=== PATIENT | female | born 1970 | race Caucasian/White ===

== ENCOUNTER 2016-12-02 18:03 | Emergency (ER) | payer OTHER | END 2016-12-02 18:39 | disposition left against medical advice (07) | DX: Z53.21 Procedure and treatment not carried out due to patient leaving prior to being seen by health care provider (principal) ==

== ENCOUNTER 2016-12-02 18:57 | Emergency (ER) | payer OTHER ==
[2016-12-02 19:15] VITALS: BP 127/99; PULSE 83; RESP 18; TEMP 98.4; O2SAT 98
[2016-12-02] MEDS ORDERED: IBUPROFEN 200 MG TAB PO ONE (19:19)
--- NOTE | 2016-12-02 19:44 | UCPHY ---
H & P Time Seen by Provider: 12/02/16 19:08 Patient Type: New HPI/ROS: This patient slipped on ice and landed on her left elbow. She complains of pain at the olecranon of the elbow and also some shoulder pain at the apex of the shoulder. She states that she felt that there is a ripping sensation the musculature of her shoulder or some structure in her shoulder when she fell. The incident occurred shortly prior to arrival she reports the pain is moderate and elbow in achy in nature and mild achiness in the left shoulder. She has not taken any medications prior to arrival. ROS: She did not strike her head. No neck or back injuries. No other musculoskeletal complaints. Neuro: No numbness or tingling. 5 point ROS is otherwise negative. 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 General: No acute distress HEENT: Atraumatic. Eyes: Pupils equal and react to light. Extraocular motions are intact. Neck: Nontender Back: Nontender Lungs: No respiratory distress. Cardiac: Brisk capillary refill is intact throughout. Pulses are 2+ and symmetric in the affected extremity. Extremities: Normal except for left upper extremity Left upper extremity: Notable for mild tenderness at the apex of the shoulder. Despite this retains full range of motion. However with AB duction she has mild increase again at the apex supraspinous tendon muscle region. No difficulty with external rotation. Elbow: She has moderate to exquisite tenderness at the left olecranon. She is able to pronate and supinate without significant increase in pain. She has mild increased pain with elbow extension but she is able flex and extend. Skin: No rash or pallor. Neuro: Alert with no sensorimotor deficits. Initial differential diagnoses: Left rotator cuff injury, rule out left elbow fracture versus contusion versus sprain Constitutional: Initial Vital Signs Temperature (C) 36.9 C 12/02/16 19:12 Heart Rate 83 12/02/16 19:12 Respiratory Rate 18 12/02/16 19:12 Blood Pressure 127/99 H 12/02/16 19:12 O2 Sat (%) 98 12/02/16 19:12 O2 Delivery Mode Room Air Allergies/Adverse Reactions: prochlorperazine edisylate [From Compazine] Allergy (Unknown, Verified 12/02/16 19:12) SEE COMMENT prochlorperazine maleate [From Compazine] Allergy (Unknown, Verified 12/02/16 19 :12) SEE COMMENT ENVIRONMENTAL Allergy (Uncoded 12/02/16 19:12) ITCHY EYES/NASAL CONGESTION Home Medications: Medication Instructions Recorded Acetaminophen [Tylenol ES 500 mg 1,000 mg PO DAILY@18 PRN 07/20/15 (*)] Calcium Carbonate [Oyster Shell 500 mg PO DAILY 07/20/15 Calcium 500 mg (*)] Calcium Carbonate [Oyster Shell 500 mg PO DAILY #30 tab 07/21/15 Calcium 500 mg (*)] Cholecalciferol Vit D3 [Vitamin D3 2,000 units PO DAILY #30 tab 07/21/15 (*)] Ketorolac Tromethamine [Toradol] 10 mg PO Q6H PRN #16 tab 07/21/15 Methocarbamol [Robaxin 750 mg (*)] 750 - 1,500 mg PO QID PRN #30 tab 12/02/16 MDM/Departure - MDM Diagnostics: Elbow x-ray: Negative by my interpretation. I also reviewed this x-ray with the patient. Medications Given: Discontinued Medications Ibuprofen (Motrin) 600 mg PO EDNOW ONE Stop: 12/02/16 19:20 Last Admin: 12/02/16 19:30 Dose: 600 mg ED Course/Re-evaluation: Patient is placed in a sling for comfort. I counseled her regarding contusion as well as shoulder rotator cuff strain. She will follow up with orthopedics for any ongoing symptoms. Also demonstrated wall crawls to keep her shoulder limber. After workup, I do not find evidence of fracture other concerning findings She is treated with ibuprofen while here. - Depart Disposition: Home, Routine, Self-Care Clinical Impression: Rotator cuff strain Qualifiers: Encounter type: initial encounter Laterality: left Qualifier Code: (S46.012A) Strain of muscle(s) and tendon(s) of the rotator cuff of left shoulder, initial encounter Elbow contusion Qualifiers: Encounter type: initial encounter Laterality: left Qualifier Code: (S50.02XA) Contusion of left elbow, initial encounter Condition: Good Instructions: Rotator Cuff Injury (ED) Additional Instructions: Diagnoses: 1. Rotator cuff strain 2. Neck strain 3. Elbow contusion Plan: Ice 20 minutes at a time 3 times a day for the next few days Sling to the left arm for comfort while up and about Gentle wall crawls stretches to maintain shoulder range of motion [id number] mg per 6 hours as needed Methocarbamol muscle relaxant in addition to the ibuprofen as needed. No driving on methocarbamol. Your symptoms should improve significantly over the next 7-10 days. If you're not improving, call Dr. thayer or an orthopedic surgeon of your choice for follow-up and further evaluation Stand Alone Forms: Work Excuse Prescriptions: Methocarbamol [Robaxin 750 mg (*)] 750 - 1,500 mg PO QID PRN #30 tab PRN Reason: Muscle Spasms Referrals: Alma Rosa Mullins MD [Primary Care Provider] - As per Instructions Conner Thayer MD [Medical Doctor] - As per Instructions - PQRS PQRS Measurement: NA
--- NOTE | 2016-12-02 19:45 | DX ---
Left Elbow 3 Views. Reason for examination: Pain following trauma. Findings: A definite fracture is not identified. The bone alignment is normal. There is a mildly prom inent anterior fat pad. Impression: No definite acute fracture although there was a mildly prominent anterior fat pad. Conser vative management and follow-up radiography could be considered with repeat assessment in 7-10 days i f symptoms persist.
== END 2016-12-02 19:52 | disposition home or self-care (01) ==
LOC: CED 18:57
DX: S46.012A Strain of muscle(s) and tendon(s) of the rotator cuff of left shoulder, initial encounter (principal); S50.02XA Contusion of left elbow, initial encounter; S16.1XXA Strain of muscle, fascia and tendon at neck level, initial encounter; W00.0XXA Fall on same level due to ice and snow, initial encounter
CPT/HCPCS: 73080-PO; G0463-PO

== ENCOUNTER 2017-11-11 08:57 | Emergency (ER) | payer OTHER ==
[2017-11-11] MEDS ORDERED: NS 1,000 ML IV ONE (10:10)
--- NOTE | 2017-11-11 10:13 | EDPHY ---
H & P Time Seen by Provider: 11/11/17 09:20 HPI/ROS: Chief complaint. Abdominal pain HPI. 39-year-old female presents emergency department with mid abdominal wall burning type pain that is constant for the last 14 hr. Possibly slight radiation to her back. No nausea vomiting or diarrhea. No urinary symptoms. No fever. She has approximately 2 years status post appendectomy. Her pain is not worse with movement or position or deep palpation. She has no chest complaints of chest discomfort or shortness of breath. ROS Constitutional. no fever/chills, no weakness Eyes. no problems with vision ENT. no sore throat, no nasal drainage Cardiovascular. no chest pain Respiratory. no shortness of breath, no cough Abdominal. Mid abdominal pain without nausea vomiting or diarrhea . no problems urinating MS. no calf pain/swelling, no neck/back pain, no joint pain Skin. no rash Lymph. no swollen glands Neuro. no headache, no dizziness, no difficulty walking or with speech Past Medical/Surgical History: Appendectomy, hyperparathyroidism Social History: , nonsmoker, no alcohol Smoking Status: Never smoked Physical Exam: General Appearance: Alert well-developed female mild distress vital signs are stable Eyes: Pupils equal and round no pallor or injection. ENT, Mouth: Mucous membranes are moist. Respiratory: There are no retractions, lungs are clear to auscultation. Cardiovascular: Regular rate and rhythm. Gastrointestinal: Abdomen is soft and nontender, no masses, bowel sounds normal. Patient shows me tenderness area is just below the umbilicus but it is not worse with palpation Neurological: Awake and alert, sensory and motor exams grossly normal. Skin: Warm and dry, no rashes. Musculoskeletal: Neck is supple nontender. Extremities symmetrical, full range of motion. Psychiatric: Patient is oriented X 3, there is no agitation. Constitutional: Initial Vital Signs Temperature (C) 36.4 C 11/11/17 09:01 Heart Rate 67 11/11/17 09:01 Respiratory Rate 18 11/11/17 09:01 Blood Pressure 126/76 H 11/11/17 09:01 O2 Sat (%) 100 11/11/17 09:01 O2 Delivery Mode Room Air Allergies/Adverse Reactions: prochlorperazine edisylate [From Compazine] Allergy (Unknown, Verified 11/11/17 08:59) SEE COMMENT prochlorperazine maleate [From Compazine] Allergy (Unknown, Verified 11/11/17 08 :59) SEE COMMENT ENVIRONMENTAL Allergy (Uncoded 12/02/16 19:12) ITCHY EYES/NASAL CONGESTION Home Medications: Medication Instructions Recorded Calcium Carbonate [Oyster Shell 500 mg PO DAILY #30 tab 07/21/15 Calcium 500 mg (*)] Medical Decision Making - Diagnostics Imaging Results: Imaging Impressions Abdomen CT 11/11/17 11:38 Impression: 1. Constipation. No evidence for small bowel obstruction. 2. Nonobstructive left nephrolithiasis. Results called and discussed with Dr. Kolton Bah on 11/11/2017, 12:43. CT abdomen pelvis with IV contrast shows constipation in the ascending transverse colon. Nonobstructing stone in the left kidney. Some fluid in non dilated loops of bowel Procedures: IV normal saline ED Course/Re-evaluation: Re-evaluation 11:30 a.m.. Patient is stable. She, her , and I discussed laboratory evaluation. She continues to have mid abdominal discomfort. 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 We discussed risks and benefits of this she is aware of course of radiation exposure On re-evaluation at 1:10 p.m. patient is stable. The patient and I discussed imaging and lab results. We discussed treatment plan including criteria for return importance of follow-up and further evaluation. She expresses understanding and agreement Differential Diagnosis: This may be a gastroenteritis type picture. There is no evidence for acute abdomen either by imaging or lab results. I considered diverticulitis as well as urinary tract infection. - Data Points Laboratory Results: Laboratory Results 11/11/17 10:40 11/11/17 10:40 11/11/17 11/11/17 11/11/17 10:40 10:40 09:05 WBC 5.38 10^3/uL 10^3/uL (3.80-9.50) RBC 4.01 10^6/uL L 10^6/uL (4.18-5.33) Hgb 13.9 g/dL g/dL (12.6-16.3) Hct 40.6 % % (38.0-47.0) MCV 101.2 fL H fL (81.5-99.8) MCH 34.7 pg H pg (27.9-34.1) MCHC 34.2 g/dL g/dL (32.4-36.7) RDW 12.2 % % (11.5-15.2) Plt Count 220 10^3/uL 10^3/uL (150-400) MPV 9.2 fL fL (8.7-11.7) Neut % (Auto) 62.3 % % (39.3-74.2) Lymph % (Auto) 24.9 % % (15.0-45.0) [place] % (Auto) 7.2 % % (4.5-13.0) Eos % (Auto) 4.5 % % (0.6-7.6) Baso % (Auto) 0.9 % % (0.3-1.7) Nucleat RBC Rel Count 0.0 % % (0.0-0.2) Absolute Neuts (auto) 3.35 10^3/uL 10^3/uL (1.70-6.50) Absolute Lymphs (auto) 1.34 10^3/uL 10^3/uL (1.00-3.00) Absolute Monos (auto) 0.39 10^3/uL 10^3/uL (0.30-0.80) Absolute Eos (auto) 0.24 10^3/uL 10^3/uL (0.03-0.40) Absolute Basos (auto) 0.05 10^3/uL 10^3/uL (0.02-0.10) Absolute Nucleated RBC 0.00 10^3/uL 10^3/uL (0-0.01) Immature Gran % 0.2 % % (0.0-1.1) Immature Gran # 0.01 10^3/uL 10^3/uL (0.00-0.10) Sodium 144 mEq/L mEq/L (135-145) Potassium 4.3 mEq/L mEq/L (3.5-5.2) Chloride 107 mEq/L mEq/L (97-110) Carbon Dioxide 25 mEq/l mEq/l (22-31) Anion Gap 12 mEq/L mEq/L (8-16) BUN 17 mg/dL mg/dL (7-23) Creatinine 0.7 mg/dL mg/dL (0.6-1.0) Estimated GFR > 60 Glucose 78 mg/dL mg/dL (70-100) Calcium 9.9 mg/dL mg/dL (8.5-10.4) Lipase 181 IU/L IU/L (23-300) Urine Color Urine Appearance Urine pH Ur Specific [place] Urine Protein Urine Ketones Urine Blood Urine Nitrate Urine Bilirubin Urine Urobilinogen Ur Leukocyte Esterase Urine RBC Cancelled Urine WBC Cancelled Ur Epithelial Cells Cancelled Ur Renal Epithelial Cell Cancelled Urine Crystals Cancelled Ammonium Urate Crystals Cancelled Calcium Carbonate Cryst Cancelled Calcium Phosphate Cryst Cancelled Calcium Oxalate Crystal Cancelled Leucine Crystals Cancelled Cystine Crystals Cancelled Uric Acid Crystals Cancelled Triple Phos Crystals Cancelled Sulfonamide Crystals Cancelled Cholesterol Crystals Cancelled Tyrosine Crystals Cancelled Bilirubin Crystals Cancelled Amorphous Sediment Cancelled Urine Bacteria Cancelled Epithelial Casts Cancelled Fatty Casts Cancelled Hyaline Casts Cancelled Granular Casts Cancelled Waxy Casts Cancelled Broad Casts Cancelled RBC Casts Cancelled WBC Casts Cancelled Urine Mucus Cancelled Urine Trichomonas Cancelled Urine Yeast Cancelled Urine Sperm Cancelled Ur Oval Fat Bodies Cancelled Ur Free Fat Droplets Cancelled Urine Glucose Urine Test Urine Comment Cancelled 11/11/17 11/11/17 09:05 09:05 WBC RBC Hgb Hct MCV MCH MCHC RDW Plt Count MPV Neut % (Auto) Lymph % (Auto) [place] % (Auto) Eos % (Auto) Baso % (Auto) Nucleat RBC Rel Count Absolute Neuts (auto) Absolute Lymphs (auto) Absolute Monos (auto) Absolute Eos (auto) Absolute Basos (auto) Absolute Nucleated RBC Immature Gran % Immature Gran # Sodium Potassium Chloride Carbon Dioxide Anion Gap BUN Creatinine Estimated GFR Glucose Calcium Lipase Urine Color PALE YELLOW Urine Appearance CLEAR Urine pH 7.0 (5.0-7.5) Ur Specific [place] 1.003 (1.002-1.030) Urine Protein NEGATIVE (NEGATIVE) Urine Ketones NEGATIVE (NEGATIVE) Urine Blood NEGATIVE (NEGATIVE) Urine Nitrate NEGATIVE (NEGATIVE) Urine Bilirubin NEGATIVE (NEGATIVE) Urine Urobilinogen NEGATIVE EU EU (0.2-1.0) Ur Leukocyte Esterase NEGATIVE (NEGATIVE) Urine RBC 1-3 /hpf /hpf (0-3) Urine WBC 1-3 /hpf /hpf (0-3) Ur Epithelial Cells TRACE /lpf /lpf (NONE-1+) Ur Renal Epithelial Cell Urine Crystals Ammonium Urate Crystals Calcium Carbonate Cryst Calcium Phosphate Cryst Calcium Oxalate Crystal Leucine Crystals Cystine Crystals Uric Acid Crystals Triple Phos Crystals Sulfonamide Crystals Cholesterol Crystals Tyrosine Crystals Bilirubin Crystals Amorphous Sediment Urine Bacteria Epithelial Casts Fatty Casts Hyaline Casts Granular Casts Waxy Casts Broad Casts RBC Casts WBC Casts Urine Mucus Urine Trichomonas Urine Yeast Urine Sperm Ur Oval Fat Bodies Ur Free Fat Droplets Urine Glucose NEGATIVE (NEGATIVE) Urine Test NEGATIVE Urine Comment Medications Given: Discontinued Medications Sodium Chloride (Ns) 1,000 mls @ 0 mls/hr IV EDNOW ONE; Wide Open PRN Reason: Protocol Stop: 11/11/17 10:11 Last Admin: 11/11/17 10:19 Dose: 1,000 mls Departure - Departure Disposition: Home, Routine, Self-Care Clinical Impression: Abdominal pain Qualifiers: Abdominal location: periumbilical Qualified Code(s): R10.33 - Periumbilical pain Condition: Good Instructions: Acute Abdominal Pain (ED) Additional Instructions: Drink plenty of fluids and stay hydrated. Consider laxative or fruit and prune juice for mild constipation. Activity as tolerated. Return for worsening pain , fever, vomiting. Recheck in 1-2 days if not improving Referrals: Alma Rosa Mullins MD [Primary Care Provider] - 1 day, if not improved
[2017-11-11 10:46] LABS: PLATELET COUNT 220 10^3/uL (150-400)
[2017-11-11] MEDS ORDERED: IOPAMIDOL (ISOVUE-300) 100 ML BTL ONE (11:50)
[2017-11-11 12:41] VITALS: BP 120/85; RESP 16; TEMP 98.4
[2017-11-11 13:01] VITALS: O2SAT 97
[2017-11-11 13:32] VITALS: PULSE 78
== END 2017-11-11 13:32 | disposition home or self-care (01) ==
DX: R10.33 Periumbilical pain (principal); E86.9 Volume depletion, unspecified
CPT/HCPCS: Q9967